=== PATIENT | female | born 2000 | race Caucasian/White ===

== ENCOUNTER 2025-05-29 23:36 | Emergency (ER) | payer OTHER ==
[~2025-05-29] VITALS: Ht 165.1 cm; Wt 93.7 kg
[2025-05-30 00:46] LABS: BASOPHILS 0.5 % (0.1-1.2); EOSINOPHILS 1.2 % (0.7-5.8); LYMPHOCYTES 29.6 % (19.3-51.7); MCH 31.8 PG (25.6-32.2); MCHC 34.3 g/dL (32.2-35.5); MCV 92.7 fL (79.4-94.8); MONOCYTES 7.8 % (4.7-12.5); NEUTROPHILS 60.5 % (34.0-71.1); RBC 3.96 M/uL (3.93-5.22)
[2025-05-30] MEDS ORDERED: FAMOTIDINE 20 MG/ 2 ML VIAL IV ONE (01:00)
[2025-05-30] MEDS ORDERED: LACTATED RINGER'S 1,000 ML IV ONE (01:00)
[2025-05-30 01:02] LABS: ALT (SGPT) 14.0 U/L (14-59); AST (SGOT) 9.0 U/L (15-37); GLOMERULAR FILTRATION RATE,EST 100.0 mL/min (>60); PROTEIN, TOTAL 6.1 g/dL (6.4-8.2); UREA NITROGEN 14.0 mg/dL (7-18)
[2025-05-30 01:18] LABS: ABO A; RH POSITIVE
[2025-05-30 01:41] LABS: BLOOD/HGB, URINE NEGATIVE (Negative); KETONE, URINE NEGATIVE (Negative); LEUK ESTERASE, URINE NEGATIVE (negative); NITRITE, URINE NEGATIVE (negative)
[2025-05-30] MEDS ORDERED: ONDANSETRON 4 MG HOME.PACK SL ONE (05:30)
[2025-05-30] MEDS ORDERED: PEPCID20 MG PO ×2 (05:33→05:45)
[2025-05-30] MEDS ORDERED: ONDANSETRON ODT4 MG PO ×2 (05:33→05:45)
[2025-05-30] MEDS ORDERED: VITAFOL-OB+DHA1 EACH PO ×2 (05:33→05:45)
[2025-05-30 06:16] VITALS: BP 128/55
== END 2025-05-30 06:18 | disposition home or self-care (01) ==
LOC: ED 23:36
PROVIDERS: Internal Medicine
DX: O99.611 Diseases of the digestive system complicating pregnancy, first trimester (principal); K21.9 Gastro-esophageal reflux disease without esophagitis; Z88.0 Allergy status to penicillin; Z91.09 Other allergy status, other than to drugs and biological substances; Z3A.00 Weeks of gestation of pregnancy not specified
CPT/HCPCS: 36415; 76801; 76817; 80053; 81003; 83690; 83735; 84702; 85025; 86900; 86901; 96374; 96375; 99284-25; A9270; J2405; J7121